=== PATIENT | male | born 1980 | race Hispanic/Latino ===

== ENCOUNTER 2020-09-21 22:35 | Emergency (ER) | payer SELFPAY ==
[2020-09-21] MEDS ORDERED: ACETAMINOPHEN 325 MG TAB PO ONE (23:46)
[2020-09-21] MEDS ORDERED: SODIUM CHLORIDE 0.9% 1000 ML 1,000 ML IV ONE ×2 (23:46→23:48)
[2020-09-21] MEDS ORDERED: PIPERACILLIN/TAZOBACTAM 3.375 3.375 GM/50 ML BAG IV ONE (23:48)
--- NOTE | 2020-09-21 23:49 | Event Note ---
ED Screening Note Date of service: 09/21/20 Time: 23:42 ED Screening Note: Patient complains of difficulty urinating since Friday. He states that he has not had a good urinary output since Friday. He reports dysuria. he has just been dribbling. Reports fever at home. He has a history of kidney stones. He denies any abdominal pain or back pain, nausea or vomiting. Patient is noted to have a heart rate of 151 and is febrile in triage with a temp of 100.7 This initial assessment/diagnostic orders/clinical plan/treatment(s) is/are subject to change based on patients health status, clinical progression and re- assessment by fellow clinical providers in the ED. Further treatment and workup at subsequent clinical providers discretion. Patient/guardian urged not to elope from the ED as their condition may be serious if not clinically assessed and managed. Initial orders include: CBC, CMP, blood cultures, urine cultures, bladder scan, IV fluids and antibiotic
[2020-09-22 01:04] LABS: Hematocrit 48.8 % (35.5-45.6); Hemoglobin 17.1 gm/dl (11.8-15.2); Mean Corpuscular HGB Conc 35 % (32-34); Mean Corpuscular Volume 84 fl (84-94); Platelet Count 150 K/mm3 (140-440); Red Blood Count 5.81 M/mm3 (3.65-5.03); Red Cell Distribution Width 13.5 % (13.2-15.2)
[2020-09-22 01:31] LABS: Albumin 3.6 g/dL (3.9-5); Calcium 8.1 mg/dL (8.4-10.2)
--- NOTE | 2020-09-22 02:33 | Emergency Department Report ---
ED Abdominal Pain HPI - General Chief Complaint: Fever Stated Complaint: CANT URINATE PUI?: No Time Seen by Provider: 09/22/20 02:26 Source: patient Mode of arrival: Ambulatory Limitations: No Limitations - History of Present Illness Initial Comments: Patient is a 40-year-old male that presents emergency room with complaints of urinary retention, lower abdominal pain, fever and chills, hematuria, testicular swelling/pain and penis pain. Patient states that his symptoms started 6 days ago. Patient states his symptoms are worsening. Patient states he has had episodes of nausea vomiting. Patient states that he is urinating a very small amount of urine. Patient states he has had urinary retention in the past. Patient states his symptoms are better with rest and worse with movement and palpation. Patient states that he is urinating drops at times. Patient states that he has had phimosis and fibrous foreskin that has covered the head of his penis for 2 years. Patient states he used to be able to retract the foreskin but he cannot. Patient denies recent travel. Patient denies recent international travel. Pat ient denies exposure to the novel coronavirus. Patient denies sick contacts. Patient denies cough. Patient denies diarrhea. Patient denies coming in contact with anybody with symptoms of the novel coronavirus. MD Complaint: abdominal pain, other -: Sudden Location: LLQ, RLQ, suprapubic Radiation: none Migration to: no migration Severity: severe Severity scale (0 -10): 10 Quality: stabbing Consistency: constant Improves With: rest Worsens With: movement Associated Symptoms: nausea, vomiting, fever, dysuria, hematuria. denies: diarrhea, chills, constipation, hematemesis, hematochezia, melena, anorexia, syncope ED Review of Systems ROS: Stated complaint: CANT URINATE Other details as noted in HPI Constitutional: denies: chills, fever Eyes: denies: eye pain, eye discharge, vision change ENT: denies: ear pain, throat pain Respiratory: denies: cough, shortness of breath, wheezing Cardiovascular: denies: chest pain, palpitations Endocrine: no symptoms reported Gastrointestinal: abdominal pain, nausea, vomiting. denies: diarrhea Genitourinary: as per HPI, dysuria, hematuria, testicular pain Musculoskeletal: denies: back pain, joint swelling, arthralgia Skin: denies: rash, lesions Neurological: denies: headache, weakness, paresthesias Psychiatric: denies: anxiety, depression Hematological/Lymphatic: denies: easy bleeding, easy bruising ED Past Medical Hx - Past Medical History Previous Medical History?: Yes Hx Kidney Stones: Yes - Surgical History Past Surgical History?: Yes Additional Surgical History: Facial cyst - Family History Family history: no significant - Social History Smoking Status: Never Smoker Substance Use Type: None ED Physical Exam - General Limitations: No Limitations General appearance: alert, in no apparent distress - Head Head exam: Present: atraumatic, normocephalic - Eye Eye exam: Present: normal appearance - ENT ENT exam: Present: mucous membranes moist - Neck Neck exam: Present: normal inspection - Respiratory Respiratory exam: Present: normal lung sounds bilaterally. Absent: respiratory distress - Cardiovascular Cardiovascular Exam: Present: regular rate, normal rhythm. Absent: systolic murmur, diastolic murmur, rubs, gallop - GI/Abdominal GI/Abdominal exam: Present: soft, distended (Palpable bladder.), tenderness (Lower abdominal tenderness.), normal bowel sounds - Rectal Rectal exam: Present: deferred - exam: Present: testicular tenderness, scrotal swelling - Extremities Exam Extremities exam: Present: normal inspection - Back Exam Back exam: Present: normal inspection - Neurological Exam Neurological exam: Present: alert, oriented X3 - Psychiatric Psychiatric exam: Present: normal affect, normal mood - Skin Skin exam: Present: warm, dry, intact, normal color. Absent: rash ED Course Vital Signs 09/21/20 09/22/20 09/22/20 23:31 02:30 04:27 Temperature 100.7 F H Pulse Rate 151 H 135 H 120 H Respiratory 18 15 21 Rate Blood Pressure 148/90 Blood Pressure 121/77 102/60 [Left] O2 Sat by Pulse 89 95 95 Oximetry - Reevaluation(s) Reevaluation #1: Initial evaluation done. Patient will be given fluids, antibiotics. Patient will have a CAT scan and a ultrasound of his testicles. 09/22/20 02:41 Reevaluation #2: Nurses unable to pass a standard Zuniga or a 12 Guatemalan coud. The cystoscopy cart ordered. 09/22/20 03:14 Reevaluation #3: I was unable to pass a 8 Guatemalan coud or a 10 Guatemalan coud through the meatus of the patient. Patient will be given antibiotics. Patient's fluids will be held. 09/22/20 04:05 Reevaluation #4: I discussed all results and clinical findings with patient. I discussed plan of care with patient. Patient agrees with plan of care and transfer. Patient is stable for transfer. Patient will transfer to [facility] via EMS. 09/22/20 04:57 - Consultations Consultation #1: I discussed case with the transfer center and the chest is going to paged urology at [place]. 09/22/20 04:06 I discussed at length with urology, Dr. Newberry. Dr. Newberry states he wants the patient to be transferred to [facility] [facility] but wants hospital medicine to accept. I then discussed with hospital medicine at [place], Dr. Pickens and Dr. Pickens has accepted the patient to be transferred. 09/22/20 04:30 - Catheter Insertion (Urinary) Indications: to alleviate urinary retention Preparation: Providone-Iodine Catheter Guatemalan Size: 8 Results: unable to pass Additional Comments: I attempted to pass an 8 Guatemalan, 10 Guatemalan catheter. I also attempted to pass a 10 Guatemalan coud, a 12 Guatemalan coud, a 14 Guatemalan coud. I was unable to retract the patient's foreskin due to fibrous tissue. Unable to expose the meatus. Unable to pass catheter into the urethra due to the anatomical abnormalities. ED Medical Decision Making - Lab Data Result diagrams: 09/21/20 00:15 09/21/20 00:15 - Radiology Data Radiology results: report reviewed, image reviewed CT abdomen pelvis wo con INDICATION: Urinary retention, fever, lower abdominal pain x 6 days. COMPARISON: None TECHNIQUE: Abdominal and pelvic CT exam performed. [facility] using CT dose reduction for ALARA by means of automated exposure control. FINDINGS: CT ABDOMEN and PELVIS: Lung Bases: No significant abnormality. Liver: No significant abnormality. Biliary: No significant abnormality. Spleen: Spleen is enlarged measuring 15.5 cm in anterior posterior dimension. Pancreas: No significant abnormality. Adrenals: No significant abnormality. Kidneys: No significant abnormality. Lymphatics: No lymphadenopathy. Vasculature: No significant abnormality. Bowel: No significant abnormality. Normal appendix. Pelvis: The penis appears abnormal with hypoattenuation seen within the corpus spongiosum measuring approximately 8.5 x 2.3 x 1.9 cm. This is asymmetric to the right as seen on image 51 of series 601 and thus is not favored to represent a dilated ureter. There is also thickening of the scrotum. Mild surrounding fat stranding most consistent with inflammation is present. Osseous Structures: No aggressive osseous lesion. Additional Findings: None IMPRESSION: 1. The corpus spongiosum of the penis is abnormal. There is an elongated area of hypoattenuation seen within the right aspect of corpus spongiosum which is nonspecific but could represent an abscess given the patient's history of fever and scrotal wall thickening. However, findings are nonspecific and urologic consultation and is recommended. MRI with and without contrast can or ultrasound can be considered to further characterize. - Medical Decision Making Patient is a 40-year-old male who presents emergency room with complaints of urinary retention, lower abdominal pain, penile pain, fever, hematuria, scrotal swelling. Patient found to be tachycardic and I ordered fluids and antibiotics early in the ER stay however we held them in order to attempt at passing a Zuniga catheter. We were unable to pass Zuniga catheter due to the phimosis and the fibrotic foreskin and the inability to pass the catheter through the patient's urethra. Patient had labs which showed left ecchymosis and an elevated WBC. Patient's clinical findings are consistent with sepsis. Patient then had a CT scan of the abdomen which shows a penile abscess. I then discussed this with urology and hospital medicine at [facility] and they accepted the patient to be transferred. They recommended starting the fluids and the patient received the antibiotics prior to discussing the case with [place]. Patient was transferred via EMS. Critical care time documented due to the multiple reassessments, prolonged time at the bedside, interpretation of diagnostics and labs and discussing case with receiving hospital and urologist and hospital medicine at [place].. - Differential Diagnosis Urinary retention, renal failure, abdominal pain, sepsis, Critical care time in (mins) excluding proc time.: 35 Critical care attestation.: If time is entered above; I have spent that time in minutes in the direct care of this critically ill patient, excluding procedure time. Critical Care Time: 35 minutes ED Disposition Clinical Impression: Urinary retention, Penile abscess, Lactic acid acidosis Abdominal pain Qualifiers: Abdominal location: lower abdomen, unspecified Qualified Code(s): R10.30 - Lower abdominal pain, unspecified Sepsis Qualifiers: Sepsis type: sepsis due to unspecified organism Sepsis acute organ dysfunction status: with acute organ dysfunction Severe sepsis acute organ dysfunction type: acute renal failure Acute renal failure type: unspecified Severe sepsis shock status: without septic shock Qualified Code(s): A41.9 - Sepsis, unspecified organism; R65.20 - Severe sepsis without septic shock; N17.9 - Acute kidney failure, unspecified Renal failure Qualifiers: Renal failure chronicity: acute Acute renal failure type: unspecified Qualified Code(s): N17.9 - Acute kidney failure, unspecified Disposition: DC/TX-70 ANOTHER TYPE HLTHCARE Is pt being admited?: No Does the pt Need Aspirin: No Condition: Critical Time of Disposition: 04:59
[2020-09-22] MEDS ORDERED: CEFEPIME/NS 2 GM/100 ML 2 GM/100 ML BAG IV ONE (02:35)
[2020-09-22] MEDS ORDERED: SODIUM CHLORIDE 0.9% 1000 ML IV SOLN IV ONE (02:35)
[2020-09-22 03:09] LABS: Total Cells Counted 100
[2020-09-22 03:10] LABS: Platelet Estimate Consistent w Auto
--- NOTE | 2020-09-22 04:18 | Cat Scan Report ---
CT abdomen pelvis wo con INDICATION: Urinary retention, fever, lower abdominal pain x 6 days. COMPARISON: None TECHNIQUE: Abdominal and pelvic CT exam performed. All CT scans at this location are performed using CT dose reduction for ALARA by means of automated exposure control. FINDINGS: CT ABDOMEN and PELVIS: Lung Bases: No significant abnormality. Liver: No significant abnormality. Biliary: No significant abnormality. Spleen: Spleen is enlarged measuring 15.5 cm in anterior posterior dimension. Pancreas: No significant abnormality. Adrenals: No significant abnormality. Kidneys: No significant abnormality. Lymphatics: No lymphadenopathy. Vasculature: No significant abnormality. Bowel: No significant abnormality. Normal appendix. Pelvis: The penis appears abnormal with hypoattenuation seen within the corpus spongiosum measuring a pproximately 8.5 x 2.3 x 1.9 cm. This is asymmetric to the right as seen on image 51 of series 601 an d thus is not favored to represent a dilated ureter. There is also thickening of the scrotum. Mild faulkner rrounding fat stranding most consistent with inflammation is present. Osseous Structures: No aggressive osseous lesion. Additional Findings: None IMPRESSION: 1. The corpus spongiosum of the penis is abnormal. There is an elongated area of hypoattenuation seen within the right aspect of corpus spongiosum which is nonspecific but could represent an abscess giv en the patient's history of fever and scrotal wall thickening. However, findings are nonspecific and urologic consultation and is recommended. MRI with and without contrast can or ultrasound can be cons idered to further characterize. Signer Name: Dawood Leone MD Signed: 09/22/2020 4:14 AM Workstation Name: [id number]
[2020-09-22 05:25] VITALS: BP 127/76
[2020-09-22] MEDS ORDERED: SODIUM CHLORIDE 0.9% 1000 ML 1,000 ML ONE (05:26)
--- NOTE | 2020-09-22 09:50 | Electrocardiograph Report ---
[facility] Test Date: 2020-09-21 Test Time: 23:49:12 Pat Name: NGHIA RAZO Department: Room: Gender: M Independent Living Specialist: COLBY : 1980 Requested By: DURGA MURRIETA Order Number: [id number] Reading MD: Junaid Ro Measurements Intervals [place] Rate: 148 P: 56 RI: 116 QRS: 19 QRSD: 97 T: 67 QT: 290 QTc: 456 Interpretive Statements Sinus tachycardia VS AFLUTTER Probable left atrial enlargement Probable left ventricular hypertrophy No previous ECG available for comparison Electronically Signed On 09-22-2020 6:50:18 PDT by Junaid Ro
== END 2020-09-22 06:14 | disposition other institution (70) ==
LOC: ED 22:35
DX: A41.89 Other specified sepsis (principal); R65.20 Severe sepsis without septic shock; N17.9 Acute kidney failure, unspecified; N48.21 Abscess of corpus cavernosum and penis; E87.2 Acidosis
CPT/HCPCS: 36415; 51702; 74176; 80053; 82140; 83690; 85007; 85025; 87040; 93005; 96361; 96365; 99291; J0692; J7030